=== PATIENT | male | born 1980 | race Caucasian/White ===

== ENCOUNTER 2022-01-15 13:35 | Day surgery (SDC) | payer OTHER, SELFPAY ==
[2022-01-15] VITALS (7 sets, daily range): BP systolic 129–135; BP diastolic 57–96; PULSE 73–89; RESP 15–16; TEMP 36.3–36.6; O2SAT 90–98; BMI 27.0
[2022-01-15] MEDS: Lactated Ringers 1,000 ML 15 ML IV ×2 (14:10→17:01)
[2022-01-15] MEDS: Cefazolin 2 GM in 0.9% Normal Saline 100 ML IV (15:04)
--- NOTE | 2022-01-15 16:36 | DCINST_ITS ---
Discharge Instructions Follow Up Care Test Results: Test results from this visit will be discussed in further detail at your follow- up appointment, if applicable. Discharge Plan Admission Primary Reason for Your Visit: Left biceps tendon repair Attending Provider: Pablito López Primary Care Provider: Care Physician,No Primary Instructions Additional Instructions / Restrictions: Follow preprinted instructions from your surgeons office. Discharge Orders/Prescriptions Prescriptions: New oxycodone 5 mg tablet 5 mg PO Q6H PRN (Reason: pain) 7 Days Qty: 28 0RF Continued ibuprofen 600 mg Tablet 600 mg PO Q6H PRN (Reason: MIGRANE) Referrals / Follow Up: Pablito López DO [Med Staff - Active Staff] - Within 2 Weeks Care Physician,No Primary [Primary Care Provider] - Disposition Disposition (needs filled in before D/C Order can be placed): Home, Self Care
--- NOTE | 2022-01-15 17:01 | OP.PCM_ITS ---
Report of Operation Date of Procedure: 01/15/22 Description of Surgical Findings:: Preoperative diagnosis: Left partial distal biceps tendon rupture Postoperative diagnosis: Left partial greater than 50% distal biceps tendon rupture Procedure: Left distal biceps tendon repair Surgeon: Pablito López DO National Insurance Officer: Tamara Bach PA-C Anesthesia: General LMA Anesthesiologist: Dr. Rutherford Complications: None apparent Drains: None Estimated blood loss: 25 cc Urinary output: None measured IV fluids: 1000 cc crystalloid Specimens: None Surgical implants: Arthrex 7 mm tenodesis screw bio composite, Arthrex biceps button Surgical indications: This is a 41-year-old male seen in the outpatient setting diagnosed with a left distal biceps injury while he was pulling back a bow. Patient felt a pop in his left elbow and has had pain in the distal biceps region since the injury. The patient was seen in our office approximately 1 week ago. Concern for biceps tendon injury was noted due to tenderness over the distal biceps tendon, Alfredo deformity, and supination weakness. Urgent MRI was obtained. Partial tearing of the distal biceps tendon was noted thought to be greater than 50%. I discussed nonoperative versus operative management with the patient. I explained that the tendon injury may heal and he may have reasonable function but ultimately may resulted in a full-thickness rupture and require surgery in the future. We discussed the surgical details at length. We settled upon surgical intervention in the form of repair of left distal biceps tendon. The risks, benefits, alternatives to procedure were reviewed with patient at length in the outpatient setting and he agreed to proceed. Risks included but were not limited to bleeding, infection, loss of life or limb, risk of anesthesia, persistent paresthesias, neurovascular injury, persistent pain, need for additional surgery, tendon rerupture, stiffness, loss of hand or elbow function. Patient expressed understanding wish to proceed with surgery. Informed consent obtained in the office. Description of procedure: Patient was seen in preoperative holding area. Patient was identified by name, medical record number, date of . The operative extremity was marked with a surgical marker. We confirmed informed consent with the patient and all questions were answered to the patient's satisfaction. At time of his procedure, patient was brought to the operative suite and positioned supine a standard operating table. All bony prominences were well- padded. General anesthesia was induced and endotracheal tube placed. The hand table attached to the left side of the table. We spun the bed 90 degrees. A well-padded pneumatic tourniquet was applied to left upper arm. We then prepped and draped the left upper extremity in normal, sterile orthopedic fashion. 2 Ancef was administered prior to incision by anesthesia staff. We performed a timeout at this point confirming side, site, and operation to be performed. No concerns voiced and elected to proceed. Left upper extremity was then exsanguinated with Esmarch bandage. Tourniquet was inflated 250 mmHg remained up for approximately 50 minutes. A transverse incision was made ulnar to brachial radialis approximately 3 fingerbreadths distal to the elbow volar crease. Skin and subcutaneous tissue was dissected sharply with a 15 blade scalpel. I then bluntly dissected in the subcutaneous plane and identified the lateral antebrachial cutaneous nerve. This was protected throughout the case. I then bluntly dissected down to the level of the radial tuberosity. There is interstitial tearing noted of the distal biceps tendon with rupture of approximately 50% of the tendon and retraction of approximately 3 cm. Significant tendinosis was noted in the torn portion. The remaining tendon stump was dissected from the radial tuberosity with Bovie cautery. I then tubularized the tendon in its entirety debriding the distal 5 mm of tendonotic portionn. I then performed a whipstitch with a #2 fiber loop. I then selected a point in the central portion of the radial tuberosity and drilled bicortically with a vendor supplied pin for the biceps button. I then utilized a 9 mm cannulated reamer to ream the near cortex of the radial tuberosity. I passed the sutures from the tendon through the biceps button sequentially. The ends of the suture were then passed through the distal portion of the tendon to eliminate creep in the distal tendon. The button was then passed bicortically, flipped to engage the far cortex of the radius. Tendon was able to be dunked nicely into the tenodesis site. Sutures were then tied over top of the tendon. I then placed a Bio-Tenodesis screw on the radial aspect of the tendon with excellent cortical purchase to reinforce the repair. Sutures were then cut proximal to the screw. The tourniquet was then deflated. Hemostasis was excellent. Dermis was reapproximated buried 3-0 Vicryl suture and skin was closed with running subcuticular 4-0 Monocryl with Dermabond. Sterile compression dressing and simple sling was then applied. Patient tolerated procedure well without apparent complication. Patient was transferred to PACU in stable condition. Patient is to receive a postoperative axillary block for postoperative analgesia. Need for skilled assistant pressman: Tamara Bach PA-C was critical to the outcome of the case. During the course of the procedure the physician assistant pressman played a vital role. Her intimate knowledge of my steps in the procedure aided in safe and expedient completion of the procedure. The PA played a vital role in positioning particularly in obtaining the appropriate positioning. The PA was also vital in the retraction of soft tissues during the exposure and protecting vital structures. She also played a vital role in closure with my direct supervision Post Operative Plan: Weightbearing: Nonweightbearing operative extremity, range of motion as tolerated Antibiotics: Ancef 2 g x 1 dose preoperatively DVT Prophylaxis: Aspirin 81 mg twice daily to start tomorrow for 2 weeks [place]: None Dressing: Okay to shower on postoperative day #2. X-Rays: None Pain Medication: Oxycodone Rx upon discharge Follow-up: 2 weeks post-operatively with me in the office. Plan to initiate physical therapy at 2 weeks for range of motion.
[2022-01-15] MEDS: Ondansetron ODT 4 MG Tablet PO (18:18)
== END 2022-01-15 18:25 | disposition home or self-care (01) ==
LOC: SDC 13:36 → AC 13:38
PROVIDERS: Referring Provider Student in an Organized Health Care Education/Training Program; Visit Provider Student in an Organized Health Care Education/Training Program
PROC: (CPT 24341; principal; 2022-01-15 15:15)
DX: S46.212A Strain of muscle, fascia and tendon of other parts of biceps, left arm, initial encounter (principal); X58.XXXA Exposure to other specified factors, initial encounter; K21.9 Gastro-esophageal reflux disease without esophagitis; Z86.16 Personal history of COVID-19; Z87.891 Personal history of nicotine dependence; R03.0 Elevated blood-pressure reading, without diagnosis of hypertension
CPT/HCPCS: 24342; 01710; 64417; J7120; J2405